=== PATIENT | female | born 1995 | race Two or more races ===

== ENCOUNTER 2017-01-02 16:35 | Emergency (ER) | payer OTHER ==
[~2017-01-02] VITALS: Ht 170.2 cm; Wt 88.0 kg
[2017-01-02 16:57] VITALS: BP 126/80
== END 2017-01-02 17:09 | disposition home or self-care (01) ==
LOC: ER 16:43
DX: L02.212 Cutaneous abscess of back [any part, except buttock and flank] (principal); E11.9 Type 2 diabetes mellitus without complications

== ENCOUNTER 2017-01-04 10:34 | Emergency (ER) | payer OTHER ==
[~2017-01-04] VITALS: Ht 170.2 cm; Wt 83.5 kg
[2017-01-04 11:30] VITALS: BP 140/60
== END 2017-01-04 11:41 | disposition home or self-care (01) ==
LOC: ER 10:37
DX: L02.212 Cutaneous abscess of back [any part, except buttock and flank] (principal); Z48.01 Encounter for change or removal of surgical wound dressing; E11.9 Type 2 diabetes mellitus without complications

== ENCOUNTER 2022-12-03 13:03 | Emergency (ER) | payer MEDICAID, OTHER ==
[~2022-12-03] VITALS: Ht 170.2 cm; Wt 87.9 kg
[2022-12-03 13:44] LABS: Urine Bacteria FEW /hpf (None Seen); Urine Blood Negative /uL (Negative); Urine Specific Gravity 1.034 (1.001-1.035); Urine WBC 1 /hpf (0 - 5)
[2022-12-03] MEDS ORDERED: SODIUM CHLORIDE 0.9% 1,000 ML IV ONE (13:45)
[2022-12-03 13:51] VITALS: BP 138/82
[2022-12-03 14:18] LABS: Basophils # (auto) 0 10 ^3/uL (0-0.2); Eosinophils # (auto) 0 10 ^3/uL (0-0.8); Eosinophils % (auto) 0.6 % (0.0-7.0); Monocytes # (auto) 0.2 10 ^3/uL (0-1.3)
[2022-12-03 14:19] LABS: Basophils % (auto) 0.7 % (0.0-2.0); Hematocrit 41.1 % (36.0-46.0); Hemoglobin 13.4 g/dL (12.2-16.2); Lymphocytes % (auto) 18.2 % (10.0-50.0); Mean Corpuscular Hemoglobin 26.3 pg (28.0-32.0); Mean Corpuscular Hgb Conc. 32.7 g/dL (32.0-36.0); Mean Corpuscular Volume 80.3 fL (80.0-100.0); Monocytes % (auto) 3.8 % (0.0-12.0); Neutrophils # (auto) 4.3 10 ^3/uL (1.6-8.6); Neutrophils % (auto) 76.7 % (37.0-80.0); Nucleated Red Blood Cells % 0.3 %; Red Blood Cells 5.12 10^6/uL (4.0-5.20); Red Cell Distribution Width 15.8 % (11.8-14.3); White Blood Cell 5.7 10^3/uL (4.4-10.8)
[2022-12-03 14:38] LABS: Albumin 3.7 g/dL (3.4-5.0); Calcium 9.5 mg/dL (8.5-10.1); Potassium 3.9 mmol/L (3.5-5.1)
[2022-12-03 14:40] LABS: BUN/Creatinine Ratio 24.3
[2022-12-03 14:43] LABS: Bilirubin, Total 0.4 mg/dL (0.2-1.0); Total Protein 7.6 g/dL (6.4-8.2)
[2022-12-03] MEDS ORDERED: InsuLIN REG 1unit/0.01ml Soln (100units/ml) IV ONE (15:15)
== END 2022-12-03 16:23 | disposition home or self-care (01) ==
LOC: ER 13:03
DX: E11.65 Type 2 diabetes mellitus with hyperglycemia (principal)
CPT/HCPCS: 36415; 80053; 81001; 81025; 82962; 85025; 96361; 96374; 99283; J1815; J7030

== ENCOUNTER 2025-04-19 21:37 | Emergency (ER) | payer MEDICAID ==
[~2025-04-19] VITALS: Ht 167.6 cm; Wt 83.6 kg
--- NOTE | 2025-04-19 21:58 | ED.PDOC ---
Psychiatric HPI Comments 29 year old female came to ER via EMS due to mental health issues/ suicidal. Patient has history of depression and bipolar disorder. Was discharged at the mental health facility at [place] a week ago and she has been homeless since then She has been depressed and has been having thoughts of harming herself to end her misery. She has no concrete plans on how to do it so. Denies being homicidal. Denies any auditory or visual hallucinations. Chief Complaint: Mental Health Time Seen by MD: 21:58 Primary Care Provider: Madie Jama Notes: Nurses Notes Information Source: Patient, Emergency Med Personnel Mode of Arrival: EMS Severity: Unable to Care for Self, Unable to Control Self Severity of Pain: Moderate Severity of Mental Status: Moderate Severity of Symptoms: Moderate Timing: Days Duration: Intermittent Presents with: Depression, Anxiety, Unclear Thinking, Suicidal Ideation Circumstance: Medical Clearance, Causing a Disturbance Stressors: Homeless History of: Depression, Bipolar, Suicidal Attempt Associated signs and symptoms: Depression, Hopeless, Anxiety Past Medical History PAST MEDICAL HISTORY: Depression, DM Past Medical History (Other): Bipolar disorder, Suicide attempt Surgical History: Denies all surgeries TELEX OPERATOR History: No Pertinent TELEX OPERATOR History Family History Family History: Reviewed,noncontributory to illness, Family hx of DM Social History Smoker: Non-Smoker Alcohol: Denies ETOH Use Drugs: Denies Drug Use Lives In: Homeless Constitutional: denies: chills, diaphoresis, fatigue, fever, malaise, sweats, weakness, others EENTM: denies: blurred vision, double vision, ear bleeding, ear discharge, ear drainage, ear pain, ear ringing, eye pain, eye redness, hearing loss, mouth pain, mouth swelling, nasal discharge, nose bleeding, nose congestion, nose pain, photophobia, tearing, throat pain, throat swelling, voice changes, others Respiratory: denies: cough, hemoptysis, orthopnea, SOB at rest, shortness of breath, SOB with excertion, stridor, wheezing, others Cardiovascular: denies: chest pain, dizzy spells, diaphoresis, Dyspnea on exertion, edema, irregular heart beat, left arm pain, lightheadedness, palpitations, PND, syncope, others Gastrointestinal: denies: abdomen distended, abdominal pain, blood streaked bowels, constipated, diarrhea, dysphagia, difficulty swallowing, hematemesis, melena, nausea, poor appetite, poor fluid intake, rectal bleeding, rectal pain, vomiting, others Genitourinary: denies: abnormal vagina bleeding, burning, dyspareunia, dysuria, flank pain, frequency, hematuria, incontinence, pain, , vagina discharge, urgency, others Neurological: denies: dizziness, fainting, headache, left sided numbness, left sided weakness, numbness, paresthesia, pre-existing deficit, right sided numbness, right sided weakness, seizure, speech problems, tingling, tremors, weakness, others Musculoskeletal: denies: back pain, gout, joint pain, joint swelling, muscle pain, muscle stiffness, neck pain, others Integumetry: denies: bruises, change in color, change in hair/nails, dryness, laceration, lesions, lumps, rash, wounds, others Allergic/Immunocompromised: denies: Difficulty Healing, Frequent Infections, Hives, Itching, others Hematologic/Lymphatic: denies: anemia, blood clots, easy bleeding, easy bruising, swollen glands, others Endocrine: denies: excessive hunger, excessive sweating, excessive thirst, excessive urination, flushing, intolerance to cold, intolerance to heat, unexplained weight gain, unexplained weight loss, others Psychiatric: reports: bipolar disorder, depression, suicidal; denies: anxiety, hopeless, panic disorder, schizophrenia, sleepless, others Physical Exam General Appearance: No Apparent Distress, Normal HEENT: Normal ENT Inspection, Pharynx Normal, TMs Normal Neck: Full Range of Motion, Non-Tender, Normal, Normal Inspection Respiratory: Chest Non-Tender, Lungs Clear, No Accessory Muscle Use, No Respiratory Distress, Normal Breath Sounds Cardiovascular: No Edema, No JVD, No Murmur, No Gallop, Normal Peripheral Pulses, Regular Rate/Rhythm Breast Exam: Deferred Gastrointestinal: No Organomegaly, Non Tender, No Pulsatile Mass, Normal Bowel Sounds, Soft Genitalia: Deferred Pelvic: Deferred Rectal: Deferred Extremities: No calf tenderness, Normal capillary refill, Normal inspection, Normal range of motion, Non-tender, No pedal edema Musculoskeletal : Apperance: Normal Neurologic: Alert, hospital laboratory technician II-XII nml as Tested, No Motor Deficits, Normal Affect, Normal Mood, No Sensory Deficits Cerebellar Function: Normal Reflexes: Normal Skin: Dry, Normal Color, Warm Lymphatic: No Adenopathy Was a procedure done? Was a procedure done?: No Psych Differential Dx OD Differential Dx: Bipolar Disorder, Depression, Suicidal Gesture Suicidal Differential Dx: Anxiety, Bipolar Disorder, Depression X-Ray, Labs, Meds, VS Vital Signs Date Time Temp Pulse Resp B/P (MAP) Pulse Ox O2 Delivery O2 Flow Rate FiO2 04/19/25 21:50 72 04/19/25 21:42 97.9 71 16 120/80 (93) 98 97.9 Lab Test 04/19/25 22:10 Range/Units White Blood Count 5.0 4.4-10.8 10^3/uL Red Blood Count 5.93 H 4.0-5.20 10^6/uL Hemoglobin 12.4 12.2-16.2 g/dL Hematocrit 40.1 36.0-46.0 % Mean Corpuscular Volume 67.5 L 80.0-100.0 fL Mean Corpuscular Hemoglobin 20.9 L 28.0-32.0 pg Mean Corpuscular Hemoglobin Concent 30.9 L 32.0-36.0 g/dL Red Cell Distribution Width 27.1 H 11.8-14.3 % Platelet Count 325 140-450 10^3/uL Mean Platelet Volume 8.1 6.9-10.8 fL Neutrophils (%) (Auto) 57.6 37.0-80.0 % Lymphocytes (%) (Auto) 35.0 10.0-50.0 % Monocytes (%) (Auto) 5.9 0.0-12.0 % Eosinophils (%) (Auto) 0.7 0.0-7.0 % Basophils (%) (Auto) 0.8 0.0-2.0 % Neutrophils # (Auto) 2.9 1.6-8.6 10 ^3/uL Lymphocytes # (Auto) 1.7 0.4-5.4 10 ^3/uL Monocytes # (Auto) 0.3 0-1.3 10 ^3/uL Eosinophils # (Auto) 0 0-0.8 10 ^3/uL Basophils # (Auto) 0 0-0.2 10 ^3/uL Nucleated Red Blood Cells 0.3 % Sodium Level 138 136-145 mmol/L Potassium Level 3.4 L 3.5-5.1 mmol/L Chloride Level 105 98-107 mmol/L Carbon Dioxide Level 25 20-31 mmol/L Anion Gap 8 5-15 Blood Urea Nitrogen 17 9-23 mg/dL Creatinine 0.78 0.550-1.02 mg/dL Glomerular Filtration Rate Calc 106 >90 mL/min BUN/Creatinine Ratio 21.8 H 10.0-20.0 Serum Glucose 241 H 74-106 mg/dL Calcium Level 10.0 8.7-10.4 mg/dL Salicylates Level < 3.0 -30 mg/dL Acetaminophen Level < 2.0 L 10.0-20.0 UG/ML Plasma/Serum Blood Alcohol < 3.0 <10 mg/dL Time of 1ST Reevaluation: 21:53 Reevaluation 1ST: Unchanged Patient Education/Counseling: Diagnosis, Treatment Family Education/Counseling: No Family Present Departure 1 Departure Time of Disposition: 05:43 (Presented with suicide ideation. Patient was medically cleared and evaluated by psychiatry who recommended voluntary inpatient. We will look for placement.) Impression: Primary Impression: Suicide ideation Disposition: 30 STILL A PATIENT Condition: Guarded Critical Care Note Critical Care Time?: Yes Critical care comment: Suicide ideation Authorized and Performed by: Ariel Vera MD Total critical care time: Approximately 39 minutes Due to a high probability of clinically significant, life threatening deter ioration, the patient required my highest level of preparedness to intervene emergently and I personally spent this critical care time directly and personally managing the patient. This critical care time included obtaining a history; examining the patient; pulse oximetry; ordering and review of studies; arranging urgent treatment with development of a management plan; evaluation of patient's response to treatment; frequent reassessment; and, discussions with other providers. This critical care time was performed to assess and manage the high probability of imminent, life-threatening deterioration that could result in multi-organ fa ilure. It was exclusive of separately billable procedures and treating other patients and teaching time. Please see my other sections and the rest of the note for further information on patient assessment and treatment. Stability Stability form required: No Heart Score Heart Score: Heart Score Response (Comments) Value History N/A 0 EKG N/A 0 Age N/A 0 Risk Factors N/A 0 Troponin N/A 0 Total 0 I personally scribed for ARIEL VERA MD ([email or web address]) on 04/19/25 at 21:58. Electronically submitted by Ruy Anna ([email or web address]). ARIEL VERA MD April 19, 2025 21:58
[2025-04-19 22:22] LABS: Basophils # (auto) 0 10 ^3/uL (0-0.2); Eosinophils # (auto) 0 10 ^3/uL (0-0.8); Mean Corpuscular Hgb Conc. 30.9 g/dL (32.0-36.0); Monocytes # (auto) 0.3 10 ^3/uL (0-1.3); Neutrophils # (auto) 2.9 10 ^3/uL (1.6-8.6); Nucleated Red Blood Cells % 0.3 %
[2025-04-19 22:24] LABS: Basophils % (auto) 0.8 % (0.0-2.0); Eosinophils % (auto) 0.7 % (0.0-7.0); Hematocrit 40.1 % (36.0-46.0); Hemoglobin 12.4 g/dL (12.2-16.2); Lymphocytes # (auto) 1.7 10 ^3/uL (0.4-5.4); Mean Corpuscular Hemoglobin 20.9 pg (28.0-32.0); Mean Corpuscular Volume 67.5 fL (80.0-100.0); Monocytes % (auto) 5.9 % (0.0-12.0); Neutrophils % (auto) 57.6 % (37.0-80.0); Platelet Count (auto) 325 10^3/uL (140-450); Red Blood Cells 5.93 10^6/uL (4.0-5.20); Red Cell Distribution Width 27.1 % (11.8-14.3)
[2025-04-19 22:32] LABS: Chloride 105 mmol/L (98-107); Sodium 138 mmol/L (136-145)
[2025-04-19 22:33] LABS: Anion Gap 8 (5-15); Carbon Dioxide 25 mmol/L (20-31)
[2025-04-19 22:38] LABS: BUN/Creatinine Ratio 21.8 (10.0-20.0); Blood Urea Nitrogen 17 mg/dL (9-23)
[2025-04-19 22:42] LABS: Acetaminophen < 2.0 UG/ML (10.0-20.0); Blood Alcohol < 3.0 mg/dL (<10); Glucose 241 mg/dL (74-106); Potassium 3.4 mmol/L (3.5-5.1); Salicylate < 3.0 mg/dL (-30)
--- NOTE | 2025-04-20 00:57 | DVHINCON2 ---
Date of Service if different f: Apr 20, 2025 Time of Service: 00:55 Consult Consult Note PSYCHIATRY ED NEW CONSULT HPI: 29 yo F pt with PPH of depression and anxiety presents to ED BIBA for safety, psychiatric stabilization, and possible med initiation/optimization in setting of homelessness, depression, and passive SI. Psychiatry consulted for safety evaluation and recommendations in context of current presentation Per pt, reports hx of chronic depression often mixed with anxiety, over past several weeks experiencing worsening depressed mood, hopelessness/helplessness, negative thoughts, loss of interest, decreased energy, poor sleep low self worth, and anxiety symptoms to include excessive worry, restlessness, racing/intrusive thoughts, palpitations, feeling tensed, and chest pr essure/tightness. Also intermittent SI that are fleeting with no plan/intent. Reports some interference with daily functioning. Reports primary stress as unemployment, lack of meaningful relationships, inadequate housing, limited support system, and financial strains. Denies HI/AVH/paranoia/catatonic/perceptual disturbances/personality changes. No overt manic, psychotic, cognitive, dissociative phenomena, panic, OCD, PTSD, or somatic symptoms noted Reports being recently released from MH facility in [facility] this week after being there for several months and since release, pt has been homeless and not have any psychotropic meds with her Pt currently does not have active outpt MH services established at this time although has sought outpt MH services in recent past. Currently Trazodone 100 mg qhs, Buspar 15 mg bid, Hydroxyzine 50 mg tid prn anxiety, Sertraline 150 mg qd, Wellbutrin XL 300 mg qd but has not had access to meds for past week Denies ETOH, THC or IDU prior to admission although does have some hx of THC/meth dependency, sober for several months Single, no children, unemployed, couch surfing/homeless, HS grad, no/limited support system noted Unknown trauma hx. Denies FH of psych hospitalizations, suicide attempts, or completed suicides No acute medical/chronic pain issues although states she had a foot drop/mini- stroke last year - is followed by outpt neurology. No hx of seizures/TBI, or recent head injuries, NKDA Some hx of SI/SA x1 via OD in 2019 resulting in several prior psych hospi talizations for SI but none in several years. Denies history of violence, unprovoked aggression, or assaultive behaviors. Denies recent hx of impulsivity, attention seeking behaviors, anger outbursts, emotional dysregulation, mood reactivity, or engaging in risky behaviors. Denies any legal problems Currently endorses SI. Denies HI/AVH. Does not have access to firearms MSE: General Appearance/Behavior: Alert and awake; appears stated age, overweight, fair grooming and hygiene; calm and cooperative, fair eye contact, no PMA/PMR Speech: coherent, rrr Thought Process: linear, logical, appears goal-directed Thought Content: Abnormal Thoughts and Perceptions: denies dissociative symptoms Homicidality / Violent Thoughts: adamantly denies HI Suicidality: passive SI Hallucinations: denies AVTH Delusions: denies paranoia, persecutory, or grandiose delusions Obsessions /compulsions: None Judgment and Insight: fair/fair Mood & Affect: "depressed" with mood-congruent, somewhat restricted but appropriate Orientation: oriented to person, place, time Attention/Concentration: appears intact Cognition: grossly intact Assessment: 29 yo F pt with PPH of depression and anxiety presents to ED BIBA for safety, psychiatric stabilization, and possible med initiation/optimization in setting of homelessness, depression, and passive SI. Pt is currently expressing some SI in setting of several recent acute life stressors (see hpi). Limited protective factors presently. Not on any psychotropics which maybe contributing to current symptoms. No outpt MH services at present. Pt agrees to talk with staff instead of acting on any suicidal feelings while in ED. Pt medically cleared in ED Hence, pts acute safety risk is low/moderate and is appropriate for inpatient psychiatric admission for safety, psychiatric stabilization, and possible medication initiation/optimization. Pt willing to transfer to inpt psych facility voluntarily Primary Diagnosis: Adjustment disorder with depressed mood and anxiety. Depressive disorder unspecified Recommend VOL transfer to inpt psych facility for higher level of care per pts request 1:1 sitter is recommended Maintain suicide precautions Recommend continuation of current outpt med regimen - Trazodone 100 mg qhs, Buspar 15 mg bid, Hydroxyzine 50 mg tid prn anxiety, Sertraline 150 mg qd, Wellbutrin XL 300 mg qd Risks/benefits/alternative treatments discussed, informed consent provided by pt If patient later refuses voluntary hospitalization/ requests to be discharged from ED prior to transfer or if no voluntary beds are available, please reconsult telepsych services to evaluate for 5150 hold. Pt verbalized understanding and is receptive to above tx plan This case was discussed with ED nurse/provider and all parties in agreement with above tx plan Андрей Wong MD Plan discussed with: Patient АНДРЕЙ WONG MD Apr 20, 2025 00:57
--- NOTE | 2025-04-20 06:47 | ECG ---
[facility] Test Date: 2025-04-19 Test Time: 21:50:44 Pat Name: PENELOPE BONILLA Department: ED Room: Gender: F Bank Analyst: ED : 1995 Requested By: DEMETRIO VERA Order Number: [id number] Reading MD: Chau Babcock Measurements Intervals Leon Rate: 72 P: 50 ND: 143 QRS: 19 QRSD: 101 T: 14 QT: 441 QTc: 483 Interpretive Statements Sinus rhythm Borderline prolonged QT interval Electronically Signed On 04-20-2025 22:36:02 PDT by Chau Babcock Please click the below link to view image of tracing.
[2025-04-20 07:15] VITALS: PULSE 80; RESP 16; O2SAT 98
[2025-04-20 13:06] VITALS: RESP 16; O2SAT 98
[2025-04-20] MEDS: hydrOXYzine 25 MG TAB or CAP PO PRN (14:53)
[2025-04-20 19:30] VITALS: PULSE 81; RESP 16; O2SAT 97
[2025-04-20] MEDS: busPIRone HCL 10 MG TAB PO SCH (23:04)
[2025-04-20] MEDS: traZODone HCL 50 MG TAB PO SCH (23:04)
[2025-04-21 07:45] VITALS: PULSE 76; RESP 14; O2SAT 98
[2025-04-21] MEDS: SERTRALINE HCL 50 MG TAB PO SCH (09:42)
[2025-04-21] MEDS: buPROPion HCL 100 MG TAB PO SCH (09:42)
[2025-04-21 11:02] LABS: Amphetamine Screen, Urine Neg (NEGATIVE); Barbiturate Scree,Urine Neg (NEGATIVE); Benzodiazephine Screen, Urine Neg (NEGATIVE); Cannabinoid Screen, Urine Neg (NEGATIVE); Cocaine Screen, Urine Neg (NEGATIVE); Opiate Scree,Urine Neg (NEGATIVE); Phencyclidine Screen, Urine Neg (NEGATIVE)
[2025-04-21 11:44] LABS: Urine Bacteria FEW /hpf (None Seen); Urine Blood Negative /uL (Negative); Urine Budding Yeast OCCASIONAL /hpf (None Seen); Urine Clarity Clear (Clear); Urine Color Light-Yellow (Yellow); Urine Protein, UAD Negative (Negative); Urine Specific Gravity 1.031 (1.001-1.035); Urine Squamous Epithelial Cell MOD /hpf (<5); Urine Urobilinogen Normal (Negative); Urine WBC 28 /HPF (0-5); Urine pH 5.5 (5.0-9.0)
[2025-04-21] MEDS: InsuLIN REG 1unit/0.01ml Soln (100units/ml) SC ONE ×2 (14:02→17:44)
[2025-04-21 17:48] VITALS: BP 128/70; PULSE 84; RESP 16; TEMP 97.5; O2SAT 100
[2025-04-21] MEDS: InsuLIN REG 1unit/0.01ml Soln (100units/ml) ONE (18:00)
== END 2025-04-21 18:01 | disposition short-term general hospital (02) ==
LOC: EDBD 21:37 → ER 21:37
DX: R45.851 Suicidal ideations (principal); E11.9 Type 2 diabetes mellitus without complications; Z59.00 Homelessness unspecified; Z79.899 Other long term (current) drug therapy
CPT/HCPCS: 36415; 80048; 80307; 80320; 80329; 81001; 81025; 82947; 85025; 93005; 96372; 99285; J1815; 82962

== ENCOUNTER 2025-10-03 17:34 | Emergency (ER) | payer MEDICAID ==
[~2025-10-03] VITALS: Ht 167.6 cm; Wt 85.7 kg
[2025-10-03 19:21] LABS: Hematocrit 32.9 % (36.0-46.0); Hemoglobin 10.3 g/dL (12.2-16.2); Mean Corpuscular Hemoglobin 22.4 pg (28.0-32.0); Mean Corpuscular Volume 71.8 fL (80.0-100.0); Nucleated Red Blood Cells % 0.0 %
--- NOTE | 2025-10-03 19:35 | ED.PDOC ---
History of Present Illness HPI Comments 30 y/o obese F presents with c/c of generalized tremors x4 days. She reports being , currently, and having associated headache. Chief Complaint: Tremors Time Seen by MD: 19:40 Primary Care Provider: Madie Reviewed Notes: Nurses Notes, Medications, Allergies Allergies: Coded Allergies: NO KNOWN ALLERGIES (Unverified , 01/02/17) Information Source: Patient Mode of Arrival: Ambulatory Severity: Moderate Timing: Hours Duration: Since onset Prehospital treatment: None Past Medical History PAST MEDICAL HISTORY: Depression, DM Surgical History: Denies all surgeries BELT BUILDER HELPER History: No Pertinent BELT BUILDER HELPER History Family History Family History: Reviewed,noncontributory to illness, Family hx of DM Social History Smoker: Non-Smoker Alcohol: Denies ETOH Use Drugs: Denies Drug Use Lives In: Homeless All Other Systems: Reviewed and Negative (As per HPI) Physical Exam General Appearance: No Apparent Distress, Obese HEENT: Normal ENT Inspection, Pharynx Normal, TMs Normal Neck: Full Range of Motion, Non-Tender, Normal, Normal Inspection Respiratory: Chest Non-Tender, Lungs Clear, No Accessory Muscle Use, No Respiratory Distress, Normal Breath Sounds Cardiovascular: No Edema, No JVD, No Murmur, No Gallop, Normal Peripheral Pulses, Regular Rate/Rhythm Breast Exam: Deferred Gastrointestinal: No Organomegaly, Non Tender, No Pulsatile Mass, Normal Bowel Sounds, Soft Genitalia: Deferred Pelvic: Deferred Rectal: Deferred Extremities: No calf tenderness, Normal capillary refill, Normal inspection, Normal range of motion, Non-tender, No pedal edema Musculoskeletal : Apperance: Normal Neurologic: Alert, rn imcu II-XII nml as Tested, No Motor Deficits, Normal Affect, Normal Mood, No Sensory Deficits Cerebellar Function: Normal Reflexes: Normal Skin: Dry, Normal Color, Warm Lymphatic: No Adenopathy Was a procedure done? Was a procedure done?: No Differential Dx Considerations may include: dehydration, electrolyte imbalance, viral, idiopathic, among others X-Ray, Labs, Meds, VS Vital Signs Date Time Temp Pulse Resp B/P (MAP) Pulse Ox O2 Delivery O2 Flow Rate FiO2 10/03/25 17:36 98.9 105 18 133/75 100 98.9 Lab Test 10/03/25 19:45 10/03/25 18:51 Range/Units Urine Color Yellow Yellow Urine Clarity Turbid H Clear Urine pH 6.5 5.0-9.0 Urine Specific [place] 1.025 1.001-1.035 Urine Protein Trace H Negative Urine Ketones Trace Negative Urine Blood Trace H Negative /uL Urine Nitrite Negative Negative Urine Bilirubin Negative Negative Urine Urobilinogen 2 H Negative mg/dL Urine Leukocyte Esterase 3+ Negative /uL Urine RBC 17 0 - 4 /hpf Urine Microscopic WBC 62 H 0-5 /HPF Urine Squamous Epithelial Cells Mod <5 /hpf Urine Bacteria Few H None Seen /hpf Urine Mucus Few None Seen Urine Glucose Trace Normal mg/dL Urine Test Positive Negative White Blood Count 5.9 4.4-10.8 10^3/uL Red Blood Count 4.59 4.0-5.20 10^6/uL Hemoglobin 10.3 L 12.2-16.2 g/dL Hematocrit 32.9 L 36.0-46.0 % Mean Corpuscular Volume 71.8 L 80.0-100.0 fL Mean Corpuscular Hemoglobin 22.4 L 28.0-32.0 pg Mean Corpuscular Hemoglobin Concent 31.2 L 32.0-36.0 g/dL Red Cell Distribution Width 19.9 H 11.8-14.3 % Platelet Count 278 140-450 10^3/uL Mean Platelet Volume 7.4 6.9-10.8 fL Neutrophils (%) (Auto) 64.3 37.0-80.0 % Lymphocytes (%) (Auto) 30.6 10.0-50.0 % Monocytes (%) (Auto) 4.4 0.0-12.0 % Eosinophils (%) (Auto) 0.4 0.0-7.0 % Basophils (%) (Auto) 0.3 0.0-2.0 % Neutrophils # (Auto) 3.8 1.6-8.6 10 ^3/uL Lymphocytes # (Auto) 1.8 0.4-5.4 10 ^3/uL Monocytes # (Auto) 0.3 0-1.3 10 ^3/uL Eosinophils # (Auto) 0 0-0.8 10 ^3/uL Basophils # (Auto) 0 0-0.2 10 ^3/uL Nucleated Red Blood Cells 0.0 % Erythrocyte Sedimentation Rate 8 0-20 mm/hr Sodium Level 139 136-145 mmol/L Potassium Level 3.5 3.5-5.1 mmol/L Chloride Level 105 98-107 mmol/L Carbon Dioxide Level 25 20-31 mmol/L Anion Gap 9 5-15 Blood Urea Nitrogen 10 9-23 mg/dL Creatinine 0.60 0.550-1.02 mg/dL Glomerular Filtration Rate Calc 125 >90 mL/min BUN/Creatinine Ratio 16.7 10.0-20.0 Serum Glucose 91 74-106 mg/dL Calcium Level 9.1 8.7-10.4 mg/dL Magnesium Level 1.6 1.6-2.6 mg/dL Total Bilirubin 0.2 0.2-1.0 mg/dL Aspartate Amino Transferase (AST) 11 L 13-40 U/L Alanine Aminotransferase (ALT) 12 7-40 U/L Alkaline Phosphatase 83 46-116 U/L C-Reactive Protein High Sensitivity 0.60 <1.0 mg/dL Total Protein 6.9 5.7-8.2 g/dL Albumin 4.0 3.2-4.8 g/dL X-Ray, Labs, Meds, VS Comment UA POSITIVE FOR INFECTION. SCRIPT TRIAL OF KEFLEX. URINE POSITIVE FOR WHICH PATIENT IS AWARE. SHE DENIES ANY ABDOMINAL CRAMPING OR VAGINAL BLEEDING OR SPOTTING. CBC CMP CRP AND SED RATE WITHIN NORMAL LIMITS. TREMORS LIKELY SECONDARY TO HER MEDICATION CHANGE OF HER PSYCH MEDS TRAZODONE AND SERTRALINE. ADVISED TO CALL HER PSYCHIATRIST SCHEDULE AN FOLLOW UP. DISCUSSED ER RETURN PRECAUTIONS PATIENT INDICATES UNDERSTANDING AND AGREES WITH DISCHARGE PLAN OF CARE. Time of 1ST Reevaluation: 20:20 Reevaluation 1ST: Unchanged Time of 2ND Reevaluation: 20:08 Reevaluation 2ND: Improved Patient Education/Counseling: Diagnosis, Treatment, Need For Follow Up Family Education/Counseling: No Family Present SEPSIS Sepsis Screen Date sepsis recognized/suspect: Oct 03, 2025 Time Sepsis recognized/suspect: 1737 Recent Procedure: No On Antibiotic Therapy: No Respiratory Rate >20: No Heart Rate >90: Yes Temp<36 C (96.8 F) or >38.3 C: No SBP <90 or MAP <65 mmHG: No New Acute Mental Status Change: No Is the patient on CPAP, BIPAP,: No Vital Signs Date Time Temp Pulse Resp B/P (MAP) Pulse Ox O2 Delivery O2 Flow Rate FiO2 10/03/25 17:36 98.9 105 18 133/75 100 98.9 Laboratory Tests Test 10/03/25 18:51 White Blood Count 5.9 10^3/uL (4.4-10.8) Departure 1 Departure Time of Disposition: 20:06 Impression: Primary Impression: Cystitis with hematuria Disposition: 01 HOME / SELF CARE / HOMELESS Condition: Stable e-Prescriptions Cephalexin Monohydrate (Cephalexin) 500 Mg Cap 500 MG PO TID for 7 Days, #21 MG Prov: JOANA ELLISON 10/03/25 Discharged With: Self Critical Care Note Critical Care Time?: No Stability Stability form required: No Heart Score Heart Score: Heart Score Response (Comments) Value History N/A 0 EKG N/A 0 Age N/A 0 Risk Factors N/A 0 Troponin N/A 0 Total 0 I personally scribed for ER ([email or web address]) on 10/03/25 at 19:35. Electronically submitted by Felipe Santos ([email or web address]). ER Oct 03, 2025 19:35 JOANA ELLISON Oct 03, 2025 20:09
[2025-10-03 19:45] LABS: Alanine Aminotransferase 12 U/L (7-40); Albumin 4.0 g/dL (3.2-4.8); Alkaline Phosphatase 83 U/L (46-116); Anion Gap 9 (5-15); BUN/Creatinine Ratio 16.7 (10.0-20.0); Blood Urea Nitrogen 10 mg/dL (9-23); Calcium 9.1 mg/dL (8.7-10.4); Carbon Dioxide 25 mmol/L (20-31); Chloride 105 mmol/L (98-107); Glucose 91 mg/dL (74-106); Sodium 139 mmol/L (136-145); Total Protein 6.9 g/dL (5.7-8.2)
[2025-10-03 19:46] LABS: Bilirubin, Total 0.2 mg/dL (0.2-1.0); Magnesium 1.6 mg/dL (1.6-2.6); Potassium 3.5 mmol/L (3.5-5.1)
[2025-10-03 19:57] LABS: Urine Protein, UAD TRACE (Negative)
[2025-10-03] MEDS ORDERED: CEPH500C PO (20:08)
[2025-10-03 20:31] VITALS: BP 118/65; PULSE 80; RESP 16; TEMP 98.8; O2SAT 100
[2025-10-03] MEDS: CEPHALEXIN 250 MG CAP PO ONE (20:31)
== END 2025-10-03 20:44 | disposition home or self-care (01) ==
LOC: ER 17:34
DX: O26.891 Other specified pregnancy related conditions, first trimester (principal); N30.91 Cystitis, unspecified with hematuria; E11.9 Type 2 diabetes mellitus without complications; E66.9 Obesity, unspecified; Z3A.01 Less than 8 weeks gestation of pregnancy
CPT/HCPCS: 36415; 80053; 81001; 81025; 82947; 83735; 85025; 85652; 86141